=== PATIENT | male | born 1960 | race Caucasian/White ===

== ENCOUNTER → 2017-02-02 | Outpatient (CLI) | payer BC ==
[2013-09-17 12:02] VITALS: BP 134/86
== END ==
LOC: RAD 14:43
DX: M25.512 Pain in left shoulder (principal)

== ENCOUNTER 2017-06-23 11:00 | Outpatient (RCR) | payer OTHER ==
[2013-09-17 12:02] VITALS: BP 134/86
== END 2017-06-26 | disposition home or self-care (01) ==
LOC: PT
DX: Z47.89 Encounter for other orthopedic aftercare (principal)

== ENCOUNTER 2018-10-17 16:00 | Outpatient (RCR) | payer BC ==
[2013-09-17 12:02] VITALS: BP 134/86
== END 2018-10-17 16:30 | disposition still patient (30) ==
LOC: PT 16:00
DX: M75.21 Bicipital tendinitis, right shoulder (principal)

== ENCOUNTER → 2019-03-08 | Outpatient (CLI) | payer BC ==
[2013-09-17 12:02] VITALS: BP 134/86
[2019-03-08 09:54] LABS: ALBUMIN 4.2 g/dL (3.5-5.0); POTASSIUM 4.7 mmol/L (3.5-5.1)
[2019-03-08 09:56] LABS: TOTAL PROTEIN 7.4 g/dL (6.4-8.3)
[2019-03-08 09:58] LABS: TOTAL BILIRUBIN 0.7 mg/dL (0.2-1.2)
[2019-03-08 10:00] LABS: HEMATOCRIT 46.8 % (42.0-52.0); HEMOGLOBIN 15.8 g/dL (13.5-18.0); MEAN CELL VOLUME 91 fl (78-100); MEAN CORPUSCULAR HEMOGLOBIN 31 pg (27-31); MEAN CORPUSCULAR HGB CONC 34 g/dL (33-37); PLATELET COUNT 351 K/mm3 (130-400); RED BLOOD COUNT 5.13 M/mm3 (4.20-5.60); RED CELL DISTRIBUTION WIDTH 13.3 % (11.5-14.5); WHITE BLOOD COUNT 5.5 K/mm3 (4.8-10.8)
[2019-03-08 10:37] LABS: LYMPHOCYTE 39 % (20-51); MONOCYTE 4 % (3-10); NEUTROPHILS 43 % (42-75)
== END ==
LOC: LAB 09:27
PROVIDERS: Physician Assistant
DX: Z00.00 Encounter for general adult medical examination without abnormal findings (principal); Z12.5 Encounter for screening for malignant neoplasm of prostate; Z13.220 Encounter for screening for lipoid disorders; Z23 Encounter for immunization; Z13.29 Encounter for screening for other suspected endocrine disorder; M54.5 Low back pain; H61.23 Impacted cerumen, bilateral; R79.89 Other specified abnormal findings of blood chemistry

== ENCOUNTER → 2019-11-25 | Day surgery (SDC) | payer BC ==
[2013-09-17 12:02] VITALS: BP 134/86
== END ==
LOC: MSO 08:06
DX: K20.90 Esophagitis, unspecified without bleeding (principal); K29.30 Chronic superficial gastritis without bleeding; K29.80 Duodenitis without bleeding; R13.14 Dysphagia, pharyngoesophageal phase; K44.9 Diaphragmatic hernia without obstruction or gangrene; I10 Essential (primary) hypertension; Z80.1 Family history of malignant neoplasm of trachea, bronchus and lung; Z80.6 Family history of leukemia; Z91.041 Radiographic dye allergy status; Z98.52 Vasectomy status
CPT/HCPCS: 00731; J2704; J7120

== ENCOUNTER → 2021-09-06 | Outpatient (CLI) | payer BC ==
[2021-09-06 08:44] LABS: BASO # 0.08 K/mm3 (0.02-0.10); EOS # 0.75 K/mm3 (0.04-0.40); EOS % 13.1 % (0.0-4.0); HEMATOCRIT 46.4 % (42.0-52.0); HEMOGLOBIN 15.5 g/dL (13.5-18.0); LYMPH# 1.98 K/mm3 (1.50-4.00); MEAN CELL VOLUME 93 fl (78-100); MEAN CORPUSCULAR HEMOGLOBIN 31 pg (27-31); MEAN CORPUSCULAR HGB CONC 33 g/dL (33-37); MEAN PLATELET VOLUME 8.8 fl (7.4-10.4); MONO # 0.38 K/mm3 (0.20-0.80); NEU # 2.52 K/mm3 (1.40-6.50); PLATELET COUNT 245 K/mm3 (130-400); RED BLOOD COUNT 4.97 M/mm3 (4.20-5.60); RED CELL DISTRIBUTION WIDTH 12.7 % (11.5-14.5); WHITE BLOOD COUNT 5.7 K/mm3 (4.8-10.8)
[2021-09-06 08:58] LABS: ALBUMIN 4.2 g/dL (3.4-4.8); POTASSIUM 4.5 mmol/L (3.5-5.1); SODIUM 142 mmol/L (136-145)
[2021-09-06 08:59] LABS: CALCIUM 9.8 mg/dL (8.3-10.5)
[2021-09-06 09:01] LABS: GLUCOSE 109 mg/dL (75-110)
[2021-09-06 09:02] LABS: CARBON DIOXIDE 25 mmol/L (23-31); TOTAL BILIRUBIN 0.4 mg/dL (0.2-1.2)
[2021-09-06 09:06] LABS: AST-SGOT 28 U/L (5-34)
[2021-09-06 09:07] LABS: ALT/SGPT 42 U/L (0-55)
[2021-09-06 09:23] LABS: TROPONIN-I < 0.030 ng/mL (<0.030)
[2021-09-06 09:24] LABS: D-DIMER 0.44 mg/L FEU (0.15-0.50)
== END ==
LOC: VAS 08:17 → LAB 08:17
PROVIDERS: Nurse Practitioner Family
DX: R06.09 Other forms of dyspnea (principal)

== ENCOUNTER → 2021-09-07 | Outpatient (CLI) | payer BC | LOC: LAB 07:12 | DX: D72.10 Eosinophilia, unspecified (principal); R06.09 Other forms of dyspnea; R00.2 Palpitations ==

== ENCOUNTER → 2022-06-08 | Outpatient (CLI) | payer OTHER ==
[2022-06-08 07:25] LABS: BASO # 0.06 K/mm3 (0.02-0.10); EOS % 18.3 % (0.0-4.0); HEMATOCRIT 43.1 % (42.0-52.0); HEMOGLOBIN 14.8 g/dL (13.5-18.0); LYMPH# 1.79 K/mm3 (1.50-4.00); MEAN CELL VOLUME 95 fl (78-100); MEAN CORPUSCULAR HEMOGLOBIN 33 pg (27-31); MEAN CORPUSCULAR HGB CONC 34 g/dL (33-37); MEAN PLATELET VOLUME 8.7 fl (7.4-10.4); MONO # 0.51 K/mm3 (0.20-0.80); NEU # 2.53 K/mm3 (1.40-6.50); PLATELET COUNT 257 K/mm3 (130-400); RED BLOOD COUNT 4.56 M/mm3 (4.20-5.60); RED CELL DISTRIBUTION WIDTH 12.7 % (11.5-14.5)
[2022-06-08 07:29] LABS: ALBUMIN 3.9 g/dL (3.4-4.8); POTASSIUM 4.1 mmol/L (3.5-5.1)
[2022-06-08 07:30] LABS: CALCIUM 9.1 mg/dL (8.3-10.5)
[2022-06-08 07:31] LABS: TOTAL PROTEIN 6.5 g/dL (6.2-8.1)
[2022-06-08 07:33] LABS: TOTAL BILIRUBIN 0.3 mg/dL (0.2-1.2)
[2022-06-08 21:34] LABS: TESTOSTERONE 975 ng/dL (221-716)
== END ==
LOC: LAB 07:02
PROVIDERS: Physician Assistant
DX: Z00.00 Encounter for general adult medical examination without abnormal findings (principal); Z13.29 Encounter for screening for other suspected endocrine disorder; Z13.1 Encounter for screening for diabetes mellitus; F43.21 Adjustment disorder with depressed mood; I10 Essential (primary) hypertension; F41.9 Anxiety disorder, unspecified; M54.2 Cervicalgia; E78.5 Hyperlipidemia, unspecified; E29.1 Testicular hypofunction; K90.9 Intestinal malabsorption, unspecified

== ENCOUNTER → 2022-12-13 | Outpatient (CLI) | payer OTHER ==
[2022-12-13 07:35] LABS: ALBUMIN 4.2 g/dL (3.4-4.8)
[2022-12-13 07:36] LABS: CALCIUM 9.5 mg/dL (8.3-10.5)
[2022-12-13 07:38] LABS: TOTAL PROTEIN 7.1 g/dL (6.2-8.1)
[2022-12-13 07:39] LABS: TOTAL BILIRUBIN 0.5 mg/dL (0.2-1.2)
[2022-12-13 17:13] LABS: TESTOSTERONE 750 ng/dL (221-716)
== END ==
LOC: LAB 07:12
PROVIDERS: Family Medicine
DX: E78.5 Hyperlipidemia, unspecified (principal); E55.9 Vitamin D deficiency, unspecified; K90.9 Intestinal malabsorption, unspecified; F52.21 Male erectile disorder

== ENCOUNTER → 2023-01-23 | Outpatient (CLI) | payer OTHER ==
[2023-01-23 12:23] LABS: HEMOGLOBIN 15.6 g/dL (13.5-18.0); MEAN PLATELET VOLUME 9.1 fl (7.4-10.4); RED CELL DISTRIBUTION WIDTH 12.9 % (11.5-14.5); WHITE BLOOD COUNT 7.2 K/mm3 (4.8-10.8)
[2023-01-23 12:27] LABS: ALBUMIN 4.3 g/dL (3.4-4.8)
[2023-01-23 12:29] LABS: CALCIUM 9.3 mg/dL (8.3-10.5)
[2023-01-23 12:30] LABS: TOTAL PROTEIN 7.3 g/dL (6.2-8.1)
[2023-01-23 12:32] LABS: TOTAL BILIRUBIN 0.4 mg/dL (0.2-1.2)
[2023-01-23 12:38] LABS: URINE APPEARANCE CLEAR; URINE COLOR YELLOW
[2023-01-23 12:39] LABS: URINE BILIRUBIN NEGATIVE (NEGATIVE); URINE BLOOD NEGATIVE (NEGATIVE); URINE GLUCOSE NEGATIVE (NEGATIVE); URINE KETONE NEGATIVE (NEGATIVE); URINE LEUKOCYTE ESTERASE TRACE (NEGATIVE); URINE NITRATE NEGATIVE (NEGATIVE); URINE PROTEIN(semi-quant) TRACE (NEGATIVE); URINE UROBILINOGEN NORMAL (NORMAL)
[2023-01-23 12:41] LABS: URINE WBC 0-1 /hpf (0-3)
== END ==
LOC: LAB 11:59
PROVIDERS: Family Medicine
DX: Z01.818 Encounter for other preprocedural examination (principal); I10 Essential (primary) hypertension; E78.5 Hyperlipidemia, unspecified; G56.03 Carpal tunnel syndrome, bilateral upper limbs

== ENCOUNTER → 2023-07-04 | Outpatient (REF) | payer MEDICARE ==
[2023-07-04 08:48] LABS: URINE WBC 0 /hpf (0-3)
[2023-07-04 09:54] LABS: PH-URINE 5.5 (5.0 - 8.0); URINE APPEARANCE CLEAR (CLEAR); URINE BILIRUBIN NEGATIVE (NEGATIVE); URINE BLOOD NEGATIVE (NEGATIVE); URINE COLOR YELLOW (YELLOW); URINE GLUCOSE NEGATIVE (NEGATIVE); URINE KETONE NEGATIVE (NEGATIVE); URINE LEUKOCYTE ESTERASE NEGATIVE (NEGATIVE); URINE NITRATE NEGATIVE (NEGATIVE); URINE PROTEIN(semi-quant) NEGATIVE (NEGATIVE)
== END ==
LOC: LAB 08:19
PROVIDERS: Nurse Practitioner Family
DX: R35.0 Frequency of micturition (principal)

== ENCOUNTER → 2023-08-10 | Outpatient (CLI) | payer MEDICARE, OTHER ==
[2023-08-10 09:20] LABS: BASO # 0.06 K/mm3 (0.02-0.10); EOS # 0.46 K/mm3 (0.04-0.40); EOS % 7.3 % (0.0-4.0); HEMATOCRIT 44.5 % (42.0-52.0); HEMOGLOBIN 14.9 g/dL (13.5-18.0); LYMPH# 2.15 K/mm3 (1.50-4.00); MEAN CELL VOLUME 92 fl (78-100); MEAN CORPUSCULAR HEMOGLOBIN 31 pg (27-31); MEAN CORPUSCULAR HGB CONC 34 g/dL (33-37); MEAN PLATELET VOLUME 8.7 fl (7.4-10.4); MONO # 0.49 K/mm3 (0.20-0.80); NEU # 3.11 K/mm3 (1.40-6.50); PLATELET COUNT 245 K/mm3 (130-400); RED BLOOD COUNT 4.84 M/mm3 (4.20-5.60); WHITE BLOOD COUNT 6.3 K/mm3 (4.8-10.8)
[2023-08-10 09:24] LABS: ALBUMIN 4.1 g/dL (3.4-4.8)
[2023-08-10 09:25] LABS: CALCIUM 9.3 mg/dL (8.3-10.5)
[2023-08-10 09:26] LABS: TOTAL PROTEIN 6.7 g/dL (6.2-8.1)
[2023-08-10 09:28] LABS: TOTAL BILIRUBIN 0.7 mg/dL (0.2-1.2)
== END ==
LOC: LAB 09:02
PROVIDERS: Physician Assistant
DX: Z12.5 Encounter for screening for malignant neoplasm of prostate (principal); Z13.29 Encounter for screening for other suspected endocrine disorder; Z13.1 Encounter for screening for diabetes mellitus; I10 Essential (primary) hypertension; E78.5 Hyperlipidemia, unspecified; K90.9 Intestinal malabsorption, unspecified

== ENCOUNTER → 2023-09-25 | Day surgery (SDC) | payer MEDICARE, OTHER ==
[~2023-09-25] MED LIST: Lidocaine PF 2% (20 MG/ML) 2 ML VIAL ONE
== END | disposition home or self-care (01) ==
LOC: MSO 09:17
DX: Z12.11 Encounter for screening for malignant neoplasm of colon (principal)
CPT/HCPCS: G0105; 00812; J2704; J7120